=== PATIENT | male | born 1955 | race Caucasian/White ===

== ENCOUNTER 2016-11-15 22:54 | Inpatient (IN) | payer OTHER ==
[~2016-11-15] VITALS: Ht 180.3 cm; Wt 87.5 kg
[2016-11-15] MEDS ORDERED: LISI-424 PO (23:08)
[2016-11-15] MEDS ORDERED: SODIUM CHLORIDE 0.9% 1,000 ML IV ONE (23:27)
[2016-11-15] MEDS ORDERED: SODIUM CHLORIDE FLUSH 10ML SYR IVF ONE (23:30)
[2016-11-15] MEDS ORDERED: SODIUM CHLORIDE 0.9% 1,000ML IVBOLUS ONE (23:30)
[2016-11-15] MEDS ORDERED: MECLIZINE CHEWABLE 25 MG TAB PO ONE (23:30)
[2016-11-15] MEDS ORDERED: PROMETHAZINE 25 MG/ML, 1ML IM ONE (23:30)
[2016-11-15] MEDS ORDERED: PROMETHAZINE 25 MG/ML, 1ML ONE (23:31)
[2016-11-15 23:44] LABS: HEMATOCRIT 44.9 % (39.2-51.8); HEMOGLOBIN 15.1 g/dL (13.7-18.0); WHITE BLOOD COUNT 8.1 x10^3/uL (3.4-10)
[2016-11-15 23:56] LABS: ASPARTATE AMINO TRANSFERASE 21 U/L (15-37); BLOOD UREA NITROGEN 11 mg/dL (7-18)
[2016-11-16] MEDS ORDERED: MECLIZINE CHEWABLE 25 MG TAB ONE (00:01)
[2016-11-16] MEDS ORDERED: SODIUM CHLORIDE 0.9% 1,000 ML IV ONE (02:12)
[2016-11-16] MEDS ORDERED: SODIUM CHLORIDE FLUSH 10ML SYR IVF PRN (02:30)
[2016-11-16] MEDS ORDERED: ONDANSETRON 2MG/ML, 2ML IVPush PRN (02:30)
[2016-11-16] MEDS: SODIUM CHLORIDE 0.9% 1,000 ML IV SCH ×2 (02:57→08:30)
[2016-11-16] MEDS ORDERED: LABETALOL 5MG/ML, 20ML IVPush PRN (03:00)
[2016-11-16] MEDS ORDERED: ACETAMINOPHEN 325 MG TABLET PO PRN (03:00)
[2016-11-16 03:20] VITALS: BP 107/62
[2016-11-16 03:33] VITALS: BP 107/62
[2016-11-16 08:54] VITALS: BP 104/63
[2016-11-16] MEDS ORDERED: LISINOPRIL 5 MG TABLET PO SCH (09:00)
[2016-11-16 09:26] VITALS: BP 107/57
== END 2016-11-16 13:30 | disposition home or self-care (01) | DRG 897 ==
LOC: ED 23:59 → EDIP 11-16 02:12 → 4WST 11-16 04:25 → DCLOUNGE 11-16 13:17
PROVIDERS: ADMIT Family Medicine; ATTEND Family Medicine
DX: F12.929 Cannabis use, unspecified with intoxication, unspecified (principal); I10 Essential (primary) hypertension; E86.0 Dehydration; G25.0 Essential tremor; H93.11 Tinnitus, right ear; R09.02 Hypoxemia; J02.9 Acute pharyngitis, unspecified; Z90.81 Acquired absence of spleen; Z91.013 Allergy to seafood; Z82.49 Family history of ischemic heart disease and other diseases of the circulatory system; Z81.8 Family history of other mental and behavioral disorders; Z84.89 Family history of other specified conditions; Z79.899 Other long term (current) drug therapy
CPT/HCPCS: 36415; 70450; 74022; 80053; 81003; 83690; 85025; 93005; 96360; 96372; J2550; J7030

== ENCOUNTER 2020-02-23 14:06 | Emergency (ER) | payer BC, OTHER ==
[~2020-02-23] VITALS: Ht 180.3 cm; Wt 84.3 kg
[~2020-02-23 14:06] MED LIST: LISI-424 PO
--- NOTE | 2020-02-23 15:13 | NUR ---
OBGYN SPECIALIST: PT TO ROOM FROM LOBBY
[2020-02-23 15:29] VITALS: BP 140/73
--- NOTE | 2020-02-23 15:30 | NUR ---
PT C/O CHRONIC CONSTIPATION OVER PAST 14MONTHS, HAS BEEN USING OTC STIMULANTS AND SOFTENERS BUT FEELS THEY ARE NO LONGER EFFECTIVE. PT RPTS NO NORMAL BM FOR OVER A WEEK. C/O DIFFUSE ABD PAIN BUT AT THIS TIME DENIES ANY PAIN. VSS, CALL LIGHT W/I REACH. ER PROVIDER EVAL PENDING.
--- NOTE | 2020-02-23 16:01 | NUR ---
DR LORA AT BEDSIDE. RADIOLOGY RESULTS DISCUSSED AND POC.
--- NOTE | 2020-02-23 16:45 | NUR ---
ENEMA GIVEN W/O DIFFICULTY. PT TOLLERATED WELL AND RPTS GOOD RESULTS.
[2020-02-23] MEDS ORDERED: PINK LADY ENEMA 490 ML BOTTLE PR ONE (17:00)
--- NOTE | 2020-02-23 17:03 | NUR ---
Patient/Caregiver given discharge instructions and they have confirmed that they understand the instructions. Patient ambulatory with steady gait.
== END 2020-02-23 17:21 | disposition home or self-care (01) ==
LOC: ED 17:15
DX: K59.00 Constipation, unspecified (principal); R10.84 Generalized abdominal pain; I10 Essential (primary) hypertension
CPT/HCPCS: 74018; 99283; 99284